=== PATIENT | male | born 1965 | race African-American/Black ===

== ENCOUNTER 2016-11-25 07:42 | Emergency (ER) | payer OTHER ==
[~2016-11-25] VITALS: Ht 177.8 cm; Wt 95.7 kg
--- NOTE | ~2016-11-25 | CT71 ---
[facility] A Service of [facility] RADIOLOGY TEXT RESULTS PATIENT: YISSEL MICHAELS LOCATION: [facility] : [birth year] UNIT #: [id number] AGE: [address]: Linda Rodrigues APRN SEX: M ORDER DR: [id number] [facility] [address] [place], [place] [address] [id number] E MR#: [id number] Acc #: [id number] NAME: YISSEL MICHAELS : 1965 SEX: M STUDY DATE/TIME: 11/25/2016 8:29 UNIT: [facility] ROOM: STUDY DESCRIPTION: CT Head Wo Contrast Attending Physician: Linda Rodrigues A.P.R.N. Ordering Physician: Ed Doctor [id number] [facility] Primary Care Physician: Primary Care Physician No MEDICAL IMAGING REPORT This report is preliminary unless electronic signature is present EXAM Head CT without contrast HISTORY Dizziness with disorientation after falling at work this morning. Head laceration. TECHNIQUE Axial images were obtained without contrast. This CT exam was performed with one or more of the following radiation dose reduction techniques: automatic exposure control, adjustment of mA and/or kV according to patient size, and iterative reconstruction. FINDINGS Axial noncontrast images were obtained from the skull base to the vertex. Ventricular size and configuration are normal. There is no evidence of acute infarct or hemorrhage. There are no extra-axial fluid collections. No mass lesion or mass effect is seen. There are no skull fractures. IMPRESSION Normal noncontrast head CT. Dictated by... Amrit Bautista M.D. THIS IS AN ELECTRONICALLY VERIFIED REPORT Amrit Bautista M.D. at 11/25/2016 3:39 PM LORI/stanley TD: 11/25/2016 09:40 JOB #: [id number] [facility] A Service of [facility] RADIOLOGY TEXT RESULTS PATIENT: YISSEL MICHAELS LOCATION: [facility] : 65 UNIT #: [id number] AGE: [address]: Linda Rodrigues APRN SEX: M ORDER DR: MEDICAL IMAGING REPORT Page 1 of 1 COPY
--- NOTE | ~2016-11-25 | CT52 ---
[facility] A Service of [facility] RADIOLOGY TEXT RESULTS PATIENT: YISSEL MICHAELS LOCATION: [facility] : [birth year] UNIT #: [id number] AGE: [address]: Linda Rodrigues APRN SEX: M ORDER DR: [id number] [facility] [address] [place], [place] [address] [id number] E MR#: [id number] Acc #: [id number] NAME: YISSEL MICHAELS : 1965 SEX: M STUDY DATE/TIME: 11/25/2016 8:29 UNIT: [facility] ROOM: STUDY DESCRIPTION: CT Cervical Spine Wo Cont Attending Physician: Linda Rodrigues A.P.R.N. Ordering Physician: Ed Doctor [id number] [facility] Primary Care Physician: Primary Care Physician No MEDICAL IMAGING REPORT This report is preliminary unless electronic signature is present EXAM Cervical spine CT HISTORY Patient fell at work today and complains of neck tenderness. TECHNIQUE Axial imaging was obtained from the skull base to the upper thoracic spine and evaluated at bone and soft tissue windows with multiplanar reformats. This CT examination was performed with one or more of the following radiation dose reduction techniques: automatic exposure control, adjustment of mA and/or kV according to patient size, and iterative reconstruction. FINDINGS Alignment is normal. Disc space height is preserved. No degenerative changes are seen. There is no evidence of fracture or bone destruction. The facets are intact. No paraspinous masses or fluid collections are seen. IMPRESSION Normal. Dictated by... Amrit Bautista M.D. THIS IS AN ELECTRONICALLY VERIFIED REPORT Amrit Bautista M.D. at 11/25/2016 3:39 PM RLF/love TD: 11/25/2016 09:49 JOB #: [id number] [facility] A Service of [facility] RADIOLOGY TEXT RESULTS PATIENT: YISSEL MICHAELS LOCATION: [facility] : 65 UNIT #: [id number] AGE: [address]: Linda Rodrigues APRN SEX: M ORDER DR: MEDICAL IMAGING REPORT Page 1 of 1 COPY
== END 2016-11-25 11:32 | disposition home or self-care (01) ==
LOC: CED 07:42
DX: E11.649 Type 2 diabetes mellitus with hypoglycemia without coma (principal); S00.03XA Contusion of scalp, initial encounter; Z79.84 Long term (current) use of oral hypoglycemic drugs
CPT/HCPCS: 36415; 70450; 72125; 82947; 96374; 96376; 99285